=== PATIENT | male | born 1960 | race African-American/Black ===

== ENCOUNTER 2020-11-22 05:43 | Emergency (ER) | payer OTHER ==
[~2020-11-22] VITALS: Ht 185.4 cm; Wt 117.9 kg
[2020-11-22 05:53] VITALS: BP 148/88
[2020-11-22] MEDS ORDERED: OLAN5TAB3 PO (07:22)
[2020-11-22] MEDS ORDERED: IBUP-1955 PO (07:22)
[2020-11-22] MEDS ORDERED: IBUPROFEN 600 MG TABLET PO ONE (07:30)
--- NOTE | 2020-11-22 07:31 | NUR ---
PT SEEN AND EXAMINED BY .
[2020-11-22] MEDS ORDERED: IBUPROFEN 600 MG TABLET ONE (07:35)
--- NOTE | 2020-11-22 07:51 | NUR ---
Patient discharged in custody in stable condition. Written and verbal after care instructions given. Patient verbalizes understanding of instruction.
== END 2020-11-22 07:53 ==
LOC: ER 05:49
DX: M54.42 Lumbago with sciatica, left side (principal); G89.29 Other chronic pain; F25.9 Schizoaffective disorder, unspecified; F31.9 Bipolar disorder, unspecified; F17.200 Nicotine dependence, unspecified, uncomplicated